=== PATIENT | female | born 1990 | race Caucasian/White ===

== ENCOUNTER 2016-07-08 10:28 | Emergency (ER) | payer OTHER ==
[~2016-07-08] VITALS: Ht 165.1 cm; Wt 50.0 kg
[2016-07-08 10:47] VITALS: BP 104/71; PULSE 112; RESP 16; O2SAT 95
[2016-07-08] MEDS ORDERED: PREN-148 PO (10:58)
--- NOTE | 2016-07-08 10:58 | ED.REPORT ---
HPI-General Illness Date of Service Jul 08, 2016 ED Provider: Julio Ravi MD The patient is a 26 year old female who is currently about 10 weeks presents to the emergency department complaining of nausea, vomiting, and diarrhea that began yesterday. Her symptoms continued through the night and this morning. She has mild abdominal pain. Her son has been sick with similar symptoms. She denies vaginal bleeding, abnormal vaginal discharge, bloody emesis or bloody diarrhea. She did not get a flu shot this year. Nursing Notes Stated Complaint: 10 WKS ,NAUSEA Chief Complaint: Female Abdominal Pain Nursing Notes Reviewed: Yes Allergies: Coded Allergies: No Known Allergies (Unverified Allergy, Unknown, 07/08/16) Scheduled Vit No.124/Iron/FA ( Vitamin Tablet) 27 Mg Iron-800 Mcg Tablet 1 EACH PO DAILY Scheduled PRN Ondansetron ODT (Zofran ODT) 4 Mg Tablet 4 MG PO Q4H PRN PRN For Nausea General Time Seen by MD: 10:55 Chief Complaint Diarrhea, Vomiting Hx Obtained From: Patient, Other family... Arrived By: Walk-in Sudden in Onset?: Yes Onset Occurred: Yesterday Context of Onset: Other (son sick with similar symptoms) Symptom Duration: Since onset Location: : Abdomen Quality: Burning, Painful Severity: Current: Mild Severity: Maximum: Mild Recent Healthcare: No recent doctor visit, No recent hospitalization Similar Sx Previous: No Past Medical History Past Medical History Healthy, denies history of medical problems Family History Noncontributory Smoking History Never Smoker Social History Drug Use: THC Other Social History: Good social support, , Lives with children, Local resident Ambulatory Status Independent Review of Systems Full Review of Systems GI: Reports: Abdominal pain (minimal), Diarrhea, Nausea, Vomiting, Denies: Bloody/tarry stool, Hematemesis, Hematochezia Female: Reports: , Denies: Vaginal bleeding - abnl, Vaginal discharge Complete sys rev & neg: except as marked. Physical Exam Vital Signs Vital Signs Date Time Temp Pulse Resp B/P Pulse Ox O2 Delivery O2 Flow Rate FiO2 07/08/16 12:05 36.2 88 16 117/64 96 Room Air 07/08/16 10:47 36.4 112 16 104/71 95 Room Air Initial VS: Reviewed Head / Eyes: Atraumatic, Normocephalic, PERRL ENT: Mucous membranes moist, Conjunctiva normal, No scleral icterus Neck: Supple, Non-tender, Full range of motion Respiratory: Breath sounds normal, Clear to auscultation, No respiratory distress Cardiovascular: Regular rate & rhythm, Heart sounds normal, Intact distal pulses Back: No CVA tenderness Lymphatic: No lymphadenopathy Extremities: Vascular intact, Neuro intact, No swelling, No tenderness Skin: Warm, Dry, No cyanosis Neurologic: Alert, Oriented, Nonfocal Psychiatric: Mood/affect normal, Behavior normal, Normal thought content General/Constitutional: Awake, Alert, Cooperative Abdomen: Atraumatic, Soft, Non-tender, No guarding, No rebound, BS normoactive , No distention, No hernia, No palpable mass, No pulsatile mass Gravid uterus c/w with 10 week Interpretation & Diagnostics Lab Results Interpretation Test 07/08/16 11:05 Hold Purple Top Tube Received (Received) Hold Blue Top Tube Received (Received) Hold Mohawk Top Tube Received (Received) Hold Marley Top Tube Received (Received) Re-Eval/Medical Decision Med Decision/Clinical Course The patient is a 26 year old female who is currently about 10 weeks presents to the emergency department complaining of nausea, vomiting, and diarrhea that began yesterday. Her symptoms continued through the night and this morning. She has mild abdominal pain. Her son has been sick with similar symptoms. She denies vaginal bleeding, abnormal vaginal discharge, bloody emesis or bloody diarrhea. Here in the emergency department the patient is afebrile stable vital signs. Abdominal examination is completely benign. Treated with Zofran and IVF, thereafter patient reported significant subjective improvement. He was able to tolerate PO fluids. Serial abdominal examinations were benign. Overall presentation most consistent with gastroenteritis. No findings suggestive of acute surgical intra-abdominal process, threatened or other immediately concerning etiology of her symptoms. I do not feel that laboratory or imaging studies are indicated. Her symptoms are now well managed. Patient was provided with a prescription for Zofran. She will follow up with her BLUEPRINT DUPLICATOR in the next couple of days. Follow-up and return precautions were reviewed in detail she was discharged in good condition. Source of Hx: Old records, Family Time of Eval: 11:50 Re-Evaluation/Progress Note: Discussed plan for discharge. All questions were addressed. Counseled Regarding: Diagnosis, Need for follow-up, When/why to return to ED Discharge & Departure Primary Impression: Nausea, vomiting, and diarrhea Additional Impressions: Weeks of gestation: 10 weeks Qualified Code: Z3A.10 - 10 weeks gestation of Gastroenteritis Dehydration Disposition: Home Discharge Condition All VS Reviewed: Yes Condition: Stable Patient Instructions: Gastroenteritis (ED) Additional Instructions: Thank you for seeking care at the emergency room. It is difficult for us to make definitive diagnoses in the ED but we believe that you are experiencing a viral infection. Our primary goal today in the ED was to evaluate you for any life-threatening conditions. Your evaluation was reassuring. You will be discharged with a prescription for Zofran that you can use for nausea and vomiting. Make sure to drink fluids as tolerated. You should follow-up with your primary doctor or OBGYN in the next week for re- evaluation. You should return to the ED immediately if you develop severe abdominal pain, fevers, uncontrollable vomiting, shortness of breath, chest pain, lightheadedness, weakness or any other concerning signs or symptoms. Thank you for letting us partake in your care today. Referrals: Edie Chester (PCP) Scribe Attestation Portions of this note were transcribed by Soha Rangel. I, Dr. Ravi personally performed the history, physical exam and medical decision-making; I reviewed and confirmed the accuracy of the information in the transcribed note. Signed by: Curt Bauer, 07/08/2016 and 1200. copies to: Edie Chester Beck O MD Jul 08, 2016 10:58 Soha Rangel Jul 08, 2016 11:21
[2016-07-08] MEDS ORDERED: ONDA4TAB9 PO (11:53)
[2016-07-08] MEDS ORDERED: 0.9% Sodium Chloride 1,000 ML IV ONE (11:55)
[2016-07-08 12:05] VITALS: BP 117/64; PULSE 88; RESP 16; O2SAT 96
== END 2016-07-08 11:52 | disposition home or self-care (01) ==
LOC: SED 10:28
DX: O21.0 Mild hyperemesis gravidarum (principal); O99.611 Diseases of the digestive system complicating pregnancy, first trimester; K52.9 Noninfective gastroenteritis and colitis, unspecified; O99.281 Endocrine, nutritional and metabolic diseases complicating pregnancy, first trimester; E86.0 Dehydration; Z3A.10 10 weeks gestation of pregnancy
CPT/HCPCS: 96360; 99284; J7030

== ENCOUNTER 2016-08-14 01:37 | Emergency (ER) | payer OTHER ==
[~2016-08-14] VITALS: Ht 165.1 cm; Wt 52.3 kg
[~2016-08-14 01:37] MED LIST: ONDA4TAB9 PO; PREN-148 PO
[2016-08-14 01:40] VITALS: BP 106/70; PULSE 84; RESP 18; O2SAT 99
--- NOTE | 2016-08-14 01:50 | ED.REPORT ---
HPI-General Illness Date of Service Aug 14, 2016 ED Provider: Dr. Olman Keith M.D. A healthy 26 year old female at 15 weeks presents to the ED with left flank pain onset this morning. The pain is intermittent and sharp in nature. The patient also reports generalized weakness, nausea, and vomiting onset just prior to arrival, upon awakening. The patient denies dysuria, hematuria, vaginal bleeding, or other symptoms. She has had similar symptoms in the past associated with a kidney infection. Nursing Notes Stated Complaint: VOMITING,15WKS ,KIDNEY PAIN Chief Complaint: Female Abdominal Pain Nursing Notes Reviewed: Yes Allergies: Coded Allergies: No Known Allergies (Unverified Allergy, Unknown, 07/08/16) Scheduled Cefuroxime Axetil (Cefuroxime) 500 Mg Tablet 500 MG PO BID Vit No.124/Iron/FA ( Vitamin Tablet) 27 Mg Iron-800 Mcg Tablet 1 EACH PO DAILY Scheduled PRN Ondansetron ODT (Zofran ODT) 4 Mg Tablet 4 MG PO Q4H PRN PRN For Nausea Ondansetron ODT (Ondansetron ODT) 8 Mg Tab.rapdis 8 MG PO QID PRN PRN For Nausea General Time Seen by MD: 01:49 Chief Complaint Other (Left Flank Pain) Hx Obtained From: Patient Arrived By: Walk-in Sudden in Onset?: Yes Onset Occurred: 17 - 20 hours ago Symptom Duration: Since onset Location: : Back (Left Flank) Quality: Painful Severity: Current: Moderate Severity: Maximum: Moderate Associated with: Reports: Nausea, Vomiting, Weakness, Denies: Fever Pertinent Negative: Relieved by nothing Recent Healthcare: No recent doctor visit Similar Sx Previous: Yes Past Medical History Past Medical History - on 08/14/16 Healthy, denies history of medical problems Past Surgical History None reported Family History Noncontributory Smoking History Never Smoker Social History Drug Use: THC Other Social History: Good social support, , Lives with children, Local resident Ambulatory Status Independent Review of Systems Full Review of Systems Constitutional: Reports: Weakness - generalized, Denies: Fever Respiratory: Denies: Non-productive cough, Shortness of breath GI: Reports: Nausea, Vomiting, Denies: Diarrhea Female: Reports: Flank pain (Left), Denies: Dysuria, Hematuria, Vaginal bleeding - abnl Physical Exam Vital Signs Vital Signs Date Time Temp Pulse Resp B/P Pulse Ox O2 Delivery O2 Flow Rate FiO2 08/14/16 06:27 36.5 74 18 118/64 98 Room Air 08/14/16 01:40 36.2 84 18 106/70 99 Room Air Initial VS: Reviewed Head / Eyes: Atraumatic, Normocephalic ENT: Conjunctiva normal, No scleral icterus Neck: Supple, Full range of motion Respiratory: Breath sounds normal, Clear to auscultation, No respiratory distress Cardiovascular: Regular rate & rhythm, Heart sounds normal Skin: Warm, Dry, No cyanosis Neurologic: Alert, Oriented, Nonfocal Psychiatric: Mood/affect normal, Behavior normal, Normal thought content General/Constitutional: Awake, Alert Abdomen: Atraumatic Tenderness/Guarding/Rebound: Positive: Tender diffuse Gravid abdomen, measured 18 weeks by palpation but previously dated 15 weeks by ultrasound Back: Full range of motion Flank / Spine / Paraspinal: Positive: Flank tender L (With mild percussion) Interpretation & Diagnostics URINE : Positive URINE DIPSTICK: 1.005 sp gravity 8 pH + Leukocyte Esterase Normal Glucose Normal Urobilinogen Otherwise Negative US RENAL: CONCLUSION: No sonographic evidence of renal or bladder pathology. Transmitted to ED by Radiologist José Jimenez M.D. at 08/14/16 - 6:00:33 AM PDT Lab Results Interpretation Result Diagram: 08/14/1621908/14/16 0220 Test 08/14/16 01:51 08/14/16 02:20 Urine Color Straw (YELLOW) Urine Appearance Slightly cloudy Urine pH 8.0 (5.0-8.0) Urine Specific [place] 1.020 (1.003-1.035) Urine Protein Negativemg/dL (NEG,TRACE) Urine Glucose (UA) Negativemg/dL (NEGATIVE) Urine Ketones Negativemg/dL (NEGATIVE) Urine Occult Blood Negative (NEGATIVE) Urine Nitrite Negative (NEGATIVE) Urine Bilirubin Negative (NEGATIVE) Urine Urobilinogen Normalmg/dL (NORMAL) Urine Leukocyte Esterase Moderate (NEGATIVE) Urine RBC 0-2/hpf (0-2) Urine WBC 0-5/hpf (0-5) Urine Epithelial Cells Moderate/hpf (NONE-MOD) Urine Crystals None seen (NONE SEEN) Urine Bacteria Many/hpf (NONE-FEW) Urine Hyaline Casts None/lpf (NONE) Urine Granular Casts None seen (NONE SEEN) Urine Waxy Casts None seen (NONE SEEN) Urine Red Blood Cell Casts None seen (NONE SEEN) Urine White Blood Cell Casts None seen (NONE SEEN) Urine Mucus None seen (None Seen) Urine Trichomonas None seen (NONE SEEN) Urine Yeast None (NONE SEEN) Urinalysis Comment None Urine Culture Reflexed Indicated White Blood Count 8.4th/mm3 (3.8-10.1) Red Blood Count 3.22mil/mm3 (3.90-5.20) Hemoglobin 9.4g/dL (12.0-15.6) Hematocrit 28.6% (35.0-46.0) Mean Corpuscular Volume 88.8fL (81-100) Mean Corpuscular Hemoglobin 29.2pg (27.0-35.0) Mean Corpuscular Hemoglobin Concent 32.9% (32.0-37.0) Red Cell Distribution Width 13.0% (12.3-15.4) Platelet Count 209bil/L (150-400) Neutrophils (%) (Auto) 71.1% (40-74) Lymphocytes (%) (Auto) 19.0% (14-46) Monocytes (%) (Auto) 7.3% (4-12) Eosinophils (%) (Auto) 1.9% (0-5) Basophils (%) (Auto) 0.2% (0-3) Prothrombin Time 10.1sec (8.1-12.5) Prothromb Time International Ratio 0.95ratio Sodium Level 139mEq/L (134-144) Potassium Level 3.8mEq/L (3.5-5.2) Chloride Level 102mEq/L (97-108) Carbon Dioxide Level 24mmol/L (18-29) Blood Urea Nitrogen 11mg/dL (6-20) Creatinine 0.37mg/dL (0.57-1.00) Estimat Glomerular Filtration Rate 302mL/min (>59) Glucose Level 90mg/dL (60-99) Calcium Level 8.5mg/dL (8.5-10.1) Magnesium Level 1.9mg/dL (1.6-2.6) Total Bilirubin 0.2mg/dL (0.0-1.2) Aspartate Amino Transf (AST/SGOT) 13U/L (0-50) Alanine Aminotransferase (ALT/SGPT) 9U/L (0-32) Alkaline Phosphatase 40U/L (25-150) Total Protein 6.3g/dL (6.4-8.4) Albumin 3.8g/dL (3.4-5.0) Hold Marley Top Tube Received (Received) Re-Eval/Medical Decision Med Decision/Clinical Course 26-year-old female with left flank pain in the setting of fifteen weeks , and history of pyelonephritis in the past. Her urine is leukocyte esterase but relatively little in the way of cells. Ultrasound was obtained to exclude an obstructing lesion and no hydronephrosis and no obstruction was found. She is fairly remarkably tender to percussion in the left flank but not the right, and benign to evaluation otherwise. Treated him. Leave for urinary tract infection with Rocephin here and Ceftin to follow. Vicodin prepack given. Ibuprofen when necessary. Follow-up with TAX COMPLIANCE REPRESENTATIVE advised. Source of Hx: Old records Time of Eval: 03:54 Patient Status: Condition improved Re-Evaluation/Progress Note: Discussed with patient lab results and plan for US. Time of Eval: 05:50 Patient Status: Condition improved Re-Evaluation/Progress Note: Discussed with patient US and lab results, diagnosis, and plan for discharge. Follow-up and return to the ER instructions given. Patient agrees with plan for care and all questions were addressed. Counseled Regarding: Diagnosis, Lab results, Need for follow-up, When/why to return to ED Discharge & Departure Primary Impression: Pyelonephritis affecting in second trimester Additional Impression: Nausea & vomiting Vomiting type: unspecified Vomiting Intractability: non-intractable Qualified Code: R11.2 - Nausea with vomiting, unspecified Disposition: Home Discharge Condition All VS Reviewed: Yes Condition: Improved Patient Instructions: Acute Pyelonephritis (ED) Additional Instructions: Follow-up with your NURSING HOME ADMINISTRATOR. Ceftin twice daily Ibuprofen 3-4 times daily if needed for pain. Sparing use of Vicodin if additional needed for pain. Zofran up to four times daily if needed for nausea. Return if worsening pain or other new symptoms of concern Referrals: Trisha Caicedo (PCP) Scribe Attestation Portions of this note were transcribed by Renae Carrasco. IDr. Keith, personally performed the history, physical exam, and medical decision-making; I reviewed and confirmed the accuracy of the information in the transcribed note. Signed by: Curt Morrow, 08/14/2016, 06:05 copies to: Trisha Caicedo Christopher W MD Aug 14, 2016 01:50 RENAE CARRASCO Aug 14, 2016 01:57
[2016-08-14 01:58] LABS: COLOR,URINE STRAW (YELLOW)
[2016-08-14 01:59] LABS: APPEARANCE,URINE SLIGHTLY CLOUDY (CLEAR,HAZY); OCCULT BLOOD,URINE NEGATIVE (NEGATIVE); UROBILINOGEN,URINE NORMAL (NORMAL)
[2016-08-14] MEDS ORDERED: 0.9% Sodium Chloride 1,000 ML IV ONE (01:59)
[2016-08-14] MEDS ORDERED: Acetaminophen IV 1,000 MG in IV Premix 1 EACH IV ONE (02:00)
[2016-08-14] MEDS ORDERED: Ondansetron 2 mg/mL 2 mL Inj IVPUSH ONE (02:00)
[2016-08-14 02:31] LABS: BASOPHILS % (AUTO) 0.2 % (0-3); EOSINOPHILS % (AUTO) 1.9 % (0-5); MONOCYTES % (AUTO) 7.3 % (4-12); Mean Corpuscular Hemoglobin 29.2 pg (27.0-35.0); Mean Corpuscular Volume 88.8 fL (81-100); NEUTROPHILS % (AUTO) 71.1 % (40-74); Platelet Count 209 bil/L (150-400)
[2016-08-14 02:47] LABS: INR 0.95 ratio
[2016-08-14 02:53] LABS: Magnesium 1.9 mg/dL (1.6-2.6)
[2016-08-14] MEDS ORDERED: _Ondansetron ODT 4 mg Tablet PO PRN (03:55)
[2016-08-14] MEDS ORDERED: cefTRIAXone Inj 2,000 MG in Dextrose 5% Minibag Plus 50 ML IV ONE (03:55)
[2016-08-14] MEDS ORDERED: CEFU500T61 PO (05:59)
[2016-08-14] MEDS ORDERED: ONDA8TAB10 PO (05:59)
[2016-08-14] MEDS ORDERED: _HYDROcodone/APAP 5-325 mg Tablet PO PRN (06:00)
[2016-08-14 06:27] VITALS: BP 118/64; PULSE 74; RESP 18; O2SAT 98
--- NOTE | 2016-08-14 09:57 | DRSVH ---
PROCEDURE: US RENAL SONOGRAM INDICATIONS: 15 weeks, left flank pain, r/o hydronephrosis/obst TECHNIQUE: Real-time scanning was performed of the kidneys and bladder, with image documentation. COMPARISON: None. FINDINGS: Kidneys: Kidneys are normal in size. Right kidney measures 9.0 cm long; left kidney measures 9.5 cm long. Right renal cortical thickness is 1.2 cm; left renal cortical thickness is 1.4 cm. Renal cor tical echotexture is normal. No hydronephrosis or nephrolithiasis. No suspicious solid mass lesions . Bladder: Pre-void bladder volume is 186 mL. Post-void residual is 1.0 mL. Pre-void images demonstr ate no intraluminal masses or stones. On pre-void images, bilateral ureteral jets are noted with col or Doppler interrogation. (Of note, ureteral jets may not be detectable in up to 25% of cases due to insufficient differences in specific gravity between ureteral and bladder urine). Miscellaneous: No free pelvic fluid. Patient is and heart rate measured 160 beats pe r minute. No additional imaging of the fetus. IMPRESSION: No source for left flank pain identified sonographically. Dictated by: Star Wilson [facility] Interpreted: Stephanie Sierra MD on 08/14/2016 at 9:57 Transcribed by: CARROLL on 08/14/2016 at 9:57 Approved by: Stephanie Sierra M.D. on 08/14/2016 at 21:42
== END 2016-08-14 05:59 | disposition home or self-care (01) ==
LOC: SED 01:37
DX: O23.02 Infections of kidney in pregnancy, second trimester (principal); Z3A.15 15 weeks gestation of pregnancy; Z87.448 Personal history of other diseases of urinary system
CPT/HCPCS: 36415; 76770; 80053; 81000; 81025; 83735; 85025; 85610; 87086; 87088; 96361; 96365; 96375; 99285; J0131; J0696; J2405; J7030

== ENCOUNTER 2017-02-17 09:31 | Emergency (ER) | payer OTHER ==
[~2017-02-17] VITALS: Ht 165.1 cm; Wt 54.5 kg
[~2017-02-17 09:31] MED LIST changes: +Benzocaine TOPICAL; +CEFU500T61 PO; +DOCU-41 PO; +IBUP-1827 PO; +Lanolin TOPICAL; +ONDA8TAB10 PO; +TUCPAD TOPICAL
[2017-02-17 09:33] VITALS: BP 106/71; PULSE 85; RESP 12; O2SAT 99
[2017-02-17 10:17] LABS: BASOPHILS % (AUTO) 0.7 % (0-3); EOSINOPHILS % (AUTO) 4.1 % (0-5); MONOCYTES % (AUTO) 7.1 % (4-12); Mean Corpuscular Hemoglobin 30.5 pg (27.0-35.0); Mean Corpuscular Volume 92.3 fL (81-100); NEUTROPHILS % (AUTO) 50.2 % (40-74); Platelet Count 264 bil/L (150-400)
--- NOTE | 2017-02-17 10:34 | ED.REPORT ---
HPI-Abd Pain F Under 40 Date of Service Feb 17, 2017 ED Provider: Eleuterio Del Rio DO The pt is a 26 y/o female presenting to the ED complaining of abdominal pain. The pain is just to the left of her umbilicus, is tender to the touch, but is not exacerbated by movement or deep breathing. She also reports having episodes of hot and cold chills. Denies vomiting, fever, diarrhea. The pt also describes having an episode of massive vaginal bleeding a week after having her baby, which was 4 weeks ago. The was vaginal. Last week she passed a piece of placenta tissue and is experiencing continued vaginal bleeding w/ roughly the same amount as her periods. The pt also describes a lump on her L calf that makes her leg go numb when applied pressure to. Nursing Notes Stated Complaint: POST DELIVERY ABDOMEN PAIN Chief Complaint: Female Abdominal Pain Nursing Notes Reviewed: Yes Allergies: Coded Allergies: No Known Allergies (Unverified Allergy, Unknown, 07/08/16) Scheduled Cefuroxime Axetil (Cefuroxime) 500 Mg Tablet 500 MG PO BID Docusate Sodium (Colace) 100 Mg Capsule 100 MG PO BID Vit No.124/Iron/FA ( Vitamin Tablet) 27 Mg Iron-800 Mcg Tablet 1 EACH PO DAILY Scheduled PRN ([Benzocaine]) 1 SPRAY/GM SPRAY 1 SPRAY TOPICAL PRN PRN PRN for perineal pain ([Lanolin]) 2 APPLIC/GM OINT 1 APPLIC TOPICAL PRN PRN PRN apply to nipples Ibuprofen (Ibuprofen) 600 Mg Tablet 600 MG PO Q6H PRN PRN For Mild Pain Ondansetron ODT (Zofran ODT) 4 Mg Tablet 4 MG PO Q4H PRN PRN For Nausea Ondansetron ODT (Ondansetron ODT) 8 Mg Tab.rapdis 8 MG PO QID PRN PRN For Nausea Witch Stephenie/Glycerin (A.e.r Pads) 12 Towelette/Pkg Towelette 1 PAD TOPICAL PRN PRN PRN for perineal pain General Time Seen by MD: 09:55 Chief Complaint Abdominal pain Hx Obtained From: Patient Arrived By: Walk-in Sudden in Onset?: Yes Onset Occurred: More than a week ago... (3 weeks) Symptom Duration: Since onset Recent Healthcare: No recent hospitalization, Recent doctor visit Similar Sx Previous: No Past Medical History Past Medical History Healthy, denies history of medical problems Past Surgical History None reported Family History Noncontributory Smoking History Current Every Day Smoker Social History Drug Use: THC Other Social History: Good social support, , Lives with children, Local resident Ambulatory Status Independent Review of Systems Episodes of "hot and cold chills"; Lump on calf that makes her leg go numb when applied pressure to; Constitutional: Denies: Fever GI: Reports: Abdominal pain, Denies: Diarrhea, Vomiting Female: Reports: Vaginal bleeding - abnl Complete sys rev & neg: except as marked. Physical Exam Initial Vital Signs Vital Signs (First) Date Time Temp Pulse Resp B/P Pulse Ox O2 Delivery O2 Flow Rate FiO2 02/17/17 09:33 36.6 85 12 106/71 99 Room Air Initial VS: Reviewed Head / Eyes: Atraumatic, Normocephalic, PERRL ENT: Mucous membranes moist, Conjunctiva normal, No scleral icterus Neck: Supple, Non-tender, Full range of motion Extremities: Vascular intact, Neuro intact, No swelling, No tenderness Skin: Warm, Dry, No cyanosis Neurologic: Alert, Oriented, Nonfocal Psychiatric: Mood/affect normal, Behavior normal, Normal thought content General/Constitutional: Awake, Alert Respiratory / Chest: Atraumatic, Breath sounds NL, Breath sounds = bilat Cardiovascular: Heart rate NL, Regular rhythm, Heart sounds NL Abdomen: Soft Focal pinpoint abdominal tenderness 2 inches inferior and 2 inches to the L of umbilicus Back: Atraumatic, Full range of motion Interpretation & Diagnostics Lab Results Interpretation Result Diagram: 02/17/17 1008 02/17/17 1008 Test 02/17/17 10:08 02/17/17 10:16 White Blood Count 6.1th/mm3 (3.8-10.1) Red Blood Count 4.00mil/mm3 (3.90-5.20) Hemoglobin 12.2g/dL (12.0-15.6) Hematocrit 36.9% (35.0-46.0) Mean Corpuscular Volume 92.3fL (81-100) Mean Corpuscular Hemoglobin 30.5pg (27.0-35.0) Mean Corpuscular Hemoglobin Concent 33.1% (32.0-37.0) Red Cell Distribution Width 13.1% (12.3-15.4) Platelet Count 264bil/L (150-400) Neutrophils (%) (Auto) 50.2% (40-74) Lymphocytes (%) (Auto) 37.7% (14-46) Monocytes (%) (Auto) 7.1% (4-12) Eosinophils (%) (Auto) 4.1% (0-5) Basophils (%) (Auto) 0.7% (0-3) Sodium Level 137mEq/L (134-144) Potassium Level 4.4mEq/L (3.5-5.2) Chloride Level 100mEq/L (97-108) Carbon Dioxide Level 21mmol/L (18-29) Blood Urea Nitrogen 12mg/dL (6-20) Creatinine 0.56mg/dL (0.57-1.00) Estimat Glomerular Filtration Rate 187mL/min (>59) Glucose Level 82mg/dL (60-99) Lactic Acid Level 0.7mmol/L (0.4-2.0) Calcium Level 9.9mg/dL (8.5-10.1) Magnesium Level 1.9mg/dL (1.6-2.6) Total Bilirubin 0.3mg/dL (0.0-1.2) Aspartate Amino Transf (AST/SGOT) 19U/L (0-50) Alanine Aminotransferase (ALT/SGPT) 20U/L (0-32) Alkaline Phosphatase 69U/L (25-150) Total Protein 7.1g/dL (6.4-8.4) Albumin 4.5g/dL (3.4-5.0) Urine Color Yellow (YELLOW) Urine Appearance Hazy (CLEAR,HAZY) Urine pH 7.5 (5.0-8.0) Urine Specific [place] 1.015 (1.003-1.035) Urine Protein Negativemg/dL (NEG,TRACE) Urine Glucose (UA) Negativemg/dL (NEGATIVE) Urine Ketones Negativemg/dL (NEGATIVE) Urine Occult Blood Moderate (NEGATIVE) Urine Nitrite Negative (NEGATIVE) Urine Bilirubin Negative (NEGATIVE) Urine Urobilinogen Normalmg/dL (NORMAL) Urine Leukocyte Esterase Negative (NEGATIVE) Urine RBC 11-50/hpf (0-2) Urine WBC 0-5/hpf (0-5) Urine Epithelial Cells Occasional/hpf (NONE-MOD) Urine Crystals None seen (NONE SEEN) Urine Bacteria Few/hpf (NONE-FEW) Urine Hyaline Casts None/lpf (NONE) Urine Granular Casts None seen (NONE SEEN) Urine Waxy Casts None seen (NONE SEEN) Urine Red Blood Cell Casts None seen (NONE SEEN) Urine White Blood Cell Casts None seen (NONE SEEN) Urine Mucus None seen (None Seen) Urine Trichomonas None seen (NONE SEEN) Urine Yeast None (NONE SEEN) Urinalysis Comment None Urine Culture Reflexed Not indicated Re-Eval/Medical Decision Med Decision/Clinical Course Med Decision/Clinical Course: Unremarkable workup. Referred back to ROD MACHINE OPERATOR. Source of Hx: Old records Counseled Regarding: Diagnosis, Lab results, Need for follow-up, When/why to return to ED Discharge & Departure Primary Impression: Pain, abdominal, nonspecific Disposition: Home Discharge Condition All VS Reviewed: Yes Condition: Stable Additional Instructions: Your workup in the ER is reassuring, follow-up with your ROD MACHINE OPERATOR in the next few days as needed or return to the ER if worse. Referrals: Trisha Caicedo (PCP) Scribe Attestation Portions of this note were transcribed by Austin Jimenez. I, Dr. Del Rio personally performed the history, physical exam and medical decision-making; I reviewed and confirmed the accuracy of the information in the transcribed note. copies to: Trisha Caicedo Timothy S DO Feb 17, 2017 10:34 Austin Jimenez Feb 17, 2017 10:41
[2017-02-17 10:46] LABS: APPEARANCE,URINE HAZY (CLEAR,HAZY); COLOR,URINE YELLOW (YELLOW); OCCULT BLOOD,URINE MODERATE (NEGATIVE); PH,URINE 7.5 (5.0-8.0); UROBILINOGEN,URINE NORMAL (NORMAL)
[2017-02-17 10:47] LABS: Magnesium 1.9 mg/dL (1.6-2.6)
--- NOTE | 2017-02-17 14:29 | DRSVH ---
PROCEDURE: US PELVIC SONOGRAM INDICATIONS: post abd pain, llq TECHNIQUE: Real-time scanning was performed of the pelvic organs, with image documentation. No transvaginal sca nning was performed. COMPARISON: None. FINDINGS: (orthogonal measurements) Uterus size: 8.45 cm, 4.85 cm, 6.76 cm Endometrium thickness: 10 mm Transabdominal scanning: Limited scanning through the kidneys shows no hydronephrosis. No pathologi c free abdominal or pelvic fluid. Additional, dedicated ultrasound scanning is performed at the area of periumbilical tenderness. No f ocal ultrasound abnormalities are seen within this region. Endovaginal scanning: Uterus: Uterus is normal in size and appearance. Endometrium is within normal physiologic limits. No hypervascular material can be seen along the endometrial stripe. Ovaries: The right ovary measures 2.9 x 2.7 x 1.9 cm. The left ovary measures 2.1 x 3 x 2 x 1 cm. The ovaries have a normal sonographic appearance. No adnexal masses are seen. IMPRESSION: Unremarkable study, without an imaging explanation found for periumbilical pain. No findings of retained products of conception can be seen. Note: Concordant preliminary findings given by the flight control tower operator upon the completion of the examination to Dr. Del Rio 11:30 AM on 02/17/17. Dictated by: Marcus Horan M.D. on 02/17/2017 at 14:23 Approved by: Marcus Horan M.D. on 02/17/2017 at 14:27
== END 2017-02-17 11:47 | disposition home or self-care (01) ==
LOC: SED 09:31
DX: R10.33 Periumbilical pain (principal); F17.200 Nicotine dependence, unspecified, uncomplicated